=== PATIENT | female | born 1960 | race Caucasian/White ===

== ENCOUNTER → 2016-06-22 | Outpatient (CLI) | payer BC ==
--- NOTE | 2016-06-23 08:22 | DX ---
Lateral views of the lumbar spine 1204 hours. History: Evaluate lumbar peritoneal shunt (G 91.8) Findings: Tubing is seen projected posterior to the L4 vertebral body segment with some tubing that t hen extends anteriorly. Clinical correlation is recommended. An AP view was not performed to document the positioning of the shunt tubing. Vertebral body heights are well-maintained. There are no subluxations. There is mild to moderate inte rvertebral disk space narrowing at L2-L3 and L3-L4 with marginal osteophytes. Impression: 1. Tubing is seen projected posterior to the L4 vertebral body segment that then appears to extend an terior in the abdomen as detailed above. Clinical correlation recommended. 2. Degenerative disk disease mid lumbar spine.
== END ==
LOC: FIMAGING 11:57
PROVIDERS: ATTEND Physician Assistant Surgical
DX: G91.8 Other hydrocephalus (principal)

== ENCOUNTER 2016-07-26 15:52 | Observation (INO) | payer BC ==
[2016-07-26] MEDS ORDERED: VANCOMYCIN 1.5 GM in D5W 250 ML IV ONE (16:30)
[2016-07-26] MEDS ORDERED: CHLORHEXIDINE GLUC HIBICLENS 118 ML BTL TP ONE (16:30)
--- NOTE | 2016-07-26 17:43 | GHP ---
DATE OF ADMISSION: 07/26/2016 CHIEF COMPLAINT: Wound pain. HISTORY OF PRESENT ILLNESS: The patient is a 55-year-old female, who had a history of a pseudotumor cerebri, and had a ventriculoperitoneal shunt placed in [place] in 2010. This was removed due to an MRSA infection. At that point in time, she was treated with IV vancomycin for 6 weeks. She presented to [facility] with symptoms consistent with shunt failure. She was taken to the operating room on 07/21/2017. She went to the ER on Monday, 2017, for redness and pain near incision. She was started on clindamycin. She was evaluated in the clinic yesterday, and it was felt that she was best to consider shunt removal. She currently complains of ongoing anterior abdominal pain, with now new pain on her left side. She bumped her abdominal incision today, and some pus came out. She has not been having any headaches, photophobia or neck stiffness. PAST MEDICAL HISTORY: Hydrocephalus. PAST SURGICAL HISTORY: Includes: 1. LOWERATOR OPERATOR shunt placement in January 2011, followed by a permanent implant in March 2015. 2. Lumboperitoneal shunt placement on July 21, 2017. MEDICATIONS: Prior to admission, is clindamycin. ALLERGIES: Iodine, morphine, Demerol, and Levaquin. FAMILY HISTORY: Noncontributory. The patient has no family history of infections. SOCIAL HISTORY: The patient is , and lives independently. Unknown on smoking, drinking or drug use. REVIEW OF SYSTEMS: Negative. PHYSICAL EXAMINATION: GENERAL APPEARANCE: Patient is a 55-year-old female lying in bed in [id number] distress. HEAD, EYES, EARS, NOSE, AND THROAT: Negative for drainage. ABDOMEN: Her anterior abdominal incision has some mild incisional erythema, but is tender. Her lateral incision does have some mild erythema and warmth. There is no drainage. EXTREMITIES: Her lumbar incision is well healed, with no signs of infection. DIAGNOSTIC STUDIES: Recent blood work from [facility] in [place] on 07/25/2017 showed that a WBC was 7.4, hemoglobin 10.14, platelet count 246. ESR is 12. Her CRP is 78.1. IMPRESSION: This is a 55-year-old female, five days out from a recent lumboperitoneal shunt placement. She has incisional erythema and pain suspicious for a wound infection. PLAN: All the above issues discussed in detail with the patient, her , as well as Dr. Parikh. At this point in time, we are not certain that she has a wound infection as the incision looks better than it did two days ago. Dr Parikh discussed in detail the risks versus benefits of removing her LP shunt. At this point in time we will admit her with repeat labs in the morning. We will have infectious disease consult and see her. If needed, we can remove her LP shunt and washout her incision. /[id number]/MODL MTDD
[2016-07-26] MEDS ORDERED: HYDROmorphONE/DILAUDID 1 MG/ML SYR IVP PRN (18:59)
[2016-07-26] MEDS ORDERED: HYDROmorphONE/DILAUDID 1 MG/ML SYR ONE (19:00)
[2016-07-26] MEDS ORDERED: ACETAMINOPHEN 325 MG TAB PO PRN (20:51)
[2016-07-26] MEDS ORDERED: PROMETHAZINE HCL 25 MG/ML INJ IVP PRN (20:51)
[2016-07-26] MEDS ORDERED: ONDANSETRON DISINTEGRATING 4 MG TAB PO PRN (20:51)
[2016-07-26] MEDS ORDERED: ONDANSETRON 4 MG/2 ML VIAL IVP PRN (20:51)
[2016-07-26] MEDS: oxyCODONE IR 5 MG TAB PO PRN (22:22)
[2016-07-26] MEDS: HYDROmorphONE/DILAUDID 1 MG/ML SYR IVP PRN (22:22)
[2016-07-26] MEDS ORDERED: TOPIRAMATE 100 MG TAB PO SCH (23:00)
[2016-07-26] MEDS: BACLOFEN 10 MG TAB PO SCH (23:19)
[2016-07-27] MEDS: oxyCODONE IR 5 MG TAB PO PRN ×2 (01:52→06:12)
[2016-07-27] MEDS: HYDROmorphONE/DILAUDID 1 MG/ML SYR IVP PRN ×2 (03:35→08:47)
[2016-07-27 06:01] LABS: % IMMATURE GRANULYOCYTES 0.3 % (0.0-1.1); ABSOLUTE IMMATURE GRANULOCYTES 0.02 10^3/uL (0.00-0.10); ADD DIFF? NO; ADD MORPH? NO; ADD SCAN? NO; ATYPICAL LYMPHOCYTE FLAG 10 (0-99); FRAGMENT RBC FLAG 0 (0-99); HEMATOCRIT 42.4 % (38.0-47.0); HEMOGLOBIN 14.2 g/dL (12.6-16.3); LEFT SHIFT FLG 0 (0-99); LIPEMIA HEMOLYSIS FLAG 80 (0-99); MEAN CELL HEMOGLOBIN 32.3 pg (27.9-34.1); MEAN CELL HEMOGLOBIN CONCENTR. 33.5 g/dL (32.4-36.7); MEAN CELL VOLUME 96.6 fL (81.5-99.8); MEAN PLATELET VOLUME 11.1 fL (8.7-11.7); PLATELET CLUMPS FLAG 0 (0-99); PLATELET COUNT 235 10^3/uL (150-400); RED BLOOD CELL COUNT 4.39 10^6/uL (4.18-5.33); RED CELL DISTRIBUTION WIDTH 12.1 % (11.5-15.2)
[2016-07-27 06:09] LABS: ANION GAP 8 mEq/L (8-16); C-REACTIVE PROTEIN 42.3 mg/L (<10.0); CALCIUM 9.3 mg/dL (8.5-10.4); CARBON DIOXIDE 25 mEq/l (22-31); CHLORIDE 108 mEq/L (97-110); CREATININE 0.8 mg/dL (0.6-1.0); GLOMERULAR FILTRATION RATE > 60; GLUCOSE 127 mg/dL (70-100); POTASSIUM 3.4 mEq/L (3.5-5.2); SODIUM 141 mEq/L (134-144)
[2016-07-27 06:24] LABS: SEDIMENTATION RATE 9 MM/HR (0-30)
[2016-07-27 08:01] VITALS: BP 143/88; PULSE 76; RESP 16; TEMP 97.6; O2SAT 99
--- NOTE | 2016-07-27 08:12 | SOAPPROG ---
SOAP Progress Note Assessment/Plan: Assessment: 55 yo F POD #6 LP shunt placement with abdominal wound tenderness Plan: neuro:s table, incision looks better today than on Monday with no drainage, WBC is normal but CRP is elevated, will follow for now. Dr Izquierdo to speak with Dr Huitron for ID consult. No headache, neck stiffness or photophobia to indicate meningitic process. diarrhea last night, pt was on clindamycin since Monday, will send stool for C. Diff PT/OT please call with neuro changes patient was seen by Dr Izquierdo. 07/27/16 08:08 Subjective: diarrhea last night, abd pain about the same, no N/V, n headaches, photophobia or neck stiffness. Objective: Vital Signs Temp Pulse Resp BP Pulse Ox 36.4 C 76 16 143/88 H 99 07/27/16 08:00 07/27/16 08:00 07/27/16 08:00 07/27/16 08:00 07/27/16 08:00 Laboratory Results 07/27/16 05:37 07/27/16 05:37 07/26/16 07/27/16 07/28/16 05:59 05:59 05:59 Intake Total 500 Balance 500 AAOX4, +follows commands PERRL, EOMI, no facial droop DANIEL x 4 + light touch mild erythema at two abdominal incisions, no drainage ICD10 Worksheet Patient Problems: Problems Problem Status Onset Wound infection after surgery Acute - ICD10 Problem Qualifiers (1) Wound infection after surgery Qualifiers: Encounter type: E
[2016-07-27] MEDS: BACLOFEN 10 MG TAB PO SCH (08:47)
[2016-07-27] MEDS ORDERED: DULoxetine 60 MG CAP PO SCH (10:30)
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
--- NOTE | 2016-07-28 14:16 | GOP ---
DATE OF OPERATION: 07/27/2016 SURGEON: Myron Parikh MD PREOPERATIVE DIAGNOSIS: Possible wound infection. POSTOPERATIVE DIAGNOSIS: Possible wound infection. REASON FOR CANCELLATION: The procedure was canceled due to the fact that after examining the patient, the incision looked better than it had 2 days prior with decreased erythema as compared to the bright I had put on her skin when I had previously evaluated it. She was afebrile with vitals stable and did not appear to be septic at all. I felt that it was in her best interest to wait. Her white count was about 7. I consulted with Infectious Disease and they agreed with the plan and felt that we should not intervene surgically at this time. This is why the surgery was canceled. /[id number]/MODL MTDD
== END 2016-07-27 13:09 | disposition home or self-care (01) ==
LOC: FSGY 15:52 → F3N 19:48
PROVIDERS: ADMIT Neurological Surgery; ATTEND Neurological Surgery
DX: L23.1 Allergic contact dermatitis due to adhesives (principal); R19.7 Diarrhea, unspecified; G91.9 Hydrocephalus, unspecified; Z86.14 Personal history of Methicillin resistant Staphylococcus aureus infection; Z98.2 Presence of cerebrospinal fluid drainage device
CPT/HCPCS: G0378 ×2; J1170; J3370